=== PATIENT | female | born 1965 | race Two or more races ===

== ENCOUNTER 2018-06-03 18:36 | Emergency (ER) | payer MEDICAID, OTHER ==
[~2018-06-03] VITALS: Ht 154.9 cm; Wt 86.2 kg
[2018-06-03 20:17] VITALS: BP 157/61
[2018-06-03] MEDS ORDERED: MEPERIDINE HCL (50 MG/ML) 1 ML VIAL IM ONE (20:30)
[2018-06-03] MEDS ORDERED: ONDANSETRON ODT 4 MG TAB PO ONE (20:30)
== END 2018-06-03 21:57 | disposition home or self-care (01) ==
LOC: ER 18:36
DX: S00.03XA Contusion of scalp, initial encounter (principal); M62.838 Other muscle spasm; M54.2 Cervicalgia; M54.5 Low back pain; W01.198A Fall on same level from slipping, tripping and stumbling with subsequent striking against other object, initial encounter; Y93.89 Activity, other specified; Y99.8 Other external cause status; Y92.89 Other specified places as the place of occurrence of the external cause
CPT/HCPCS: 70450; 72100; 72125; 96372; 99284; J2175; Q0162